=== PATIENT | male | born 1940 | race Two or more races ===

== ENCOUNTER 2024-10-24 22:04 | Emergency (ER) | payer OTHER ==
[~2024-10-24] VITALS: Ht 170.2 cm; Wt 65.3 kg
[2024-10-24] MEDS: IV NS 0.9% 1,000 ML BAG IV ONE (22:30)
[2024-10-24 22:40] LABS: BASOPHILS # (AUTO) 0.1 K/uL (0.0-0.2); BASOPHILS % (AUTO) 0.3 % (0.0-2.0); EOSINOPHILS # (AUTO) 0.1 K/uL (0.0-0.7); EOSINOPHILS % (AUTO) 0.3 % (0.0-6.0); HEMATOCRIT 28 % (39-51); HEMOGLOBIN 9.1 g/dL (13.5-17.5); LYMPHOCYTES # (AUTO) 1.3 K/uL (0.8-4.8); LYMPHOCYTES % (AUTO) 5.8 % (20.0-44.0); MEAN CORPUSCULAR HEMOGLOBIN 29 PG (26.0-33.0); MEAN CORPUSCULAR HGB CONC 33 g/dl (31.0-36.0); MEAN CORPUSCULAR VOLUME 89 fL (80-96); MONOCYTES # (AUTO) 1.2 K/uL (0.1-1.30); MONOCYTES % (AUTO) 5.4 % (2.0-12.0); NEUTROPHILS # (AUTO) 19.8 K/uL (1.8-8.9); NEUTROPHILS % (AUTO) 88.2 % (43.0-81.0); PLATELET COUNT (AUTO) 466 K/uL (150-450); RED BLOOD CELL COUNT(AUTO) 3.12 MIL/uL (4.5-6.0); RED CELL DISTRIBUTION WIDTH 14.8 % (11.5-15.0); WHITE BLOOD COUNT (AUTO) 22.5 K/uL (4.3-11.0)
[2024-10-24 22:54] LABS: ALBUMIN 1.5 g/dL (3.4-5.0); BILIRUBIN,DIRECT 0.3 mg/dL (0.0-0.2); BILIRUBIN,TOTAL 0.4 mg/dL (0.2-1.0); CREATININE 3.1 mg/dL (0.6-1.3); POTASSIUM 4.6 mmol/L (3.5-5.1); TOTAL PROTEIN, SERUM 7.3 g/dL (6.4-8.2)
[2024-10-24 23:03] LABS: ACETONE, SERUM NEGATIVE (NEGATIVE)
[2024-10-24 23:16] LABS: MAGNESIUM 2.3 mg/dL (1.8-2.4); PHOSPHORUS 4.6 mg/dL (2.5-4.9)
[2024-10-25] MEDS ORDERED: LIDOCAINE 2% JEL UROJET 10 ML MM ONE (00:12)
[2024-10-25 00:36] LABS: SITE, VBG VBG - N/A; VBG BASE EXCESS -3.7 mmol/L (-2.0-3.0); VBG COHb 0.3 % (0.5-1.5); VBG HCO3 21.8 mmol/L (22.0-29.0); VBG MetHb 0.2 % (0.5-1.5); VBG O2Hb 67.7 % (0-79); VBG PCO2 41.3 mmHg (38.0-54.0); VBG TOTAL HEMOGLOBIN 11.2 G/dL (13.5-17.5)
[2024-10-25] MEDS ORDERED: INSULIN REGULAR, HUMAN 100 UNIT/ML 10 ML VIAL ONE (00:44)
[2024-10-25] MEDS: IV NS 0.9% 1,000 ML BAG IV ONE (00:48)
[2024-10-25] MEDS: INSULIN REGULAR, HUMAN 100 UNIT/ML 10 ML VIAL IV ONE (00:50)
[2024-10-25 00:57] LABS: APPEARANCE,URINE CLEAR (CLEAR); BILIRUBIN,URINE NEGATIVE (NEGATIVE); BLOOD, URINE TRACE-INTA Ery/uL (NEGATIVE); COLOR,URINE YELLOW (YELLOW); KETONES,URINE NEGATIVE (NEGATIVE); LEUKOCYTE ESTERASE ,URINE NEGATIVE (NEGATIVE); NITRITE, URINE NEGATIVE (NEGATIVE); PH,URINE 5.5 (5.0-8.0); PROTEIN,URINE 1+ mg/dl (NEGATIVE); UGLUCOSE 1+ mg/dL (NEGATIVE); UROBILINOGEN,URINE 0.2 EU/dL (0.2)
[2024-10-25 00:58] LABS: ADD URINE CULTURE NO; BACTERIA,URINE Rare /HPF (None Seen); SQUAMOUS EPITHELIAL CELL,UR Few /HPF (None Seen); WBC,URINE 0-2 /HPF (0-3)
[2024-10-25] MEDS: VANCOMYCIN 1 GM in IV D5W 250 ML IV ONE (01:31)
[2024-10-25] MEDS ORDERED: VANCOMYCIN 1 GM /D5W 250 ML PB IV ONE (01:40)
[2024-10-25] MEDS ORDERED: PIPERACI/TAZO 3.375GM/D5W 50ML PB IV ONE (01:40)
[2024-10-25] MEDS: PIPERACILLIN /TAZOBACTAM 3.375 G in IV D5W 50 ML IV ONE (02:24)
[2024-10-25 06:45] VITALS: TEMP 98
[2024-10-25 09:14] VITALS: BP 100/46; O2SAT 95
[2024-10-25] MEDS: IV NS 0.9% 500 ML BAG IV ONE (09:40)
== END 2024-10-25 11:02 | disposition short-term general hospital (02) ==
LOC: ER 22:12
DX: M86.9 Osteomyelitis, unspecified (principal); E11.22 Type 2 diabetes mellitus with diabetic chronic kidney disease; E11.621 Type 2 diabetes mellitus with foot ulcer; E11.65 Type 2 diabetes mellitus with hyperglycemia; E11.69 Type 2 diabetes mellitus with other specified complication; L97.519 Non-pressure chronic ulcer of other part of right foot with unspecified severity; N17.9 Acute kidney failure, unspecified; N18.9 Chronic kidney disease, unspecified; R79.89 Other specified abnormal findings of blood chemistry; R41.82 Altered mental status, unspecified; Z88.5 Allergy status to narcotic agent
CPT/HCPCS: 99291; 70450; 96361 ×2; 82803; 71045; 85025; 80048; 82010; 80076; 83735; 84100; 36415; 82962 ×4; 96365; 96375; 96368; 73630 ×2; 81001; J7030 ×2; J1815; J3490; J3370; J2543; J7040; A4223